=== PATIENT | female | born 1955 | race Caucasian/White ===

== ENCOUNTER → 2017-05-16 | Outpatient (CLI) | payer OTHER ==
[~2017-05-16] MED LIST: ALBU3IS INH; ALBU90OI61 INH; ALSUMA6 MG/0.5 M SC; BUPR150ER; Benadryl 50 mg50 MG PO; Budeprion Xl300 MG; CAMBIA50 MG PO; Diclofenac Pota50 MG PO; FLUSAL1005 INH; FLUT1DIS2 INH; FOLI1 PO; KETO60I; MAGNESIUM250 MG PO; ONDA4ODT MM; Pepcid20 MG PO; Prednisone20 MG PO; RALO60; SUMA6I; TOPI100; TOPI100 PO; TRAM50 PO; ZOLM5
[2017-05-16 14:07] LABS: BASOPHILS ABSOLUTE AUTO 0.07 K/mm3 (0.00-0.23); BASOPHILS PERCENT AUTO 1 % (0-2); EOSINOPHILS ABSOLUTE AUTO 0.15 K/mm3 (0.00-0.68); EOSINOPHILS PERCENT AUTO 2 % (0-6); Hematocrit 43.4 % (33.0-51.0); Hemoglobin 13.7 g/dL (11.5-16.0); IMMATURE GRAN ABSOLUTE AUTO 0.02 K/mm3 (0.00-0.10); IMMATURE GRAN PERCENT AUTO 0 % (0-1); LYMPHOCYTES ABSOLUTE AUTO 1.53 K/mm3 (0.84-5.20); LYMPHOCYTES PERCENT AUTO 24 % (21-46); MONOCYTES ABSOLUTE AUTO 0.43 K/mm3 (0.16-1.47); MONOCYTES PERCENT AUTO 7 % (4-13); Mean Corpuscular HGB 28.2 pg (26.0-34.0); Mean Corpuscular HGB Conc 31.6 g/dL (31.5-36.5); Mean Corpuscular Volume 89 fL (80-100); Mean Platelet Volume 9.1 fL (9.1-12.4); NEUTROPHILS ABSOLUTE AUTO 4.21 K/mm3 (1.96-9.15); NEUTROPHILS PERCENT AUTO 66 % (41-73); Platelet Count 383 K/mm3 (150-400); RDW Coefficient Variation 13.1 % (11.7-14.2); RDW Standard Deviation 43.1 fL (35.1-46.3); Red Blood Cell Count 4.86 M/mm3 (3.80-5.20); White Blood Cell Count 6.41 K/mm3 (4.00-11.30)
[2017-05-16 14:33] LABS: Albumin, Blood 3.8 g/dL (3.4-5.0); Albumin/Globulin Ratio 1.1 (0.8-1.8); Bilirubin, Total 0.3 mg/dL (0.1-1.0); Bun/Creatinine Ratio 14.7 (12.0-20.0); Calcium, Blood 8.5 mg/dL (8.5-10.1); Creatinine, Blood 1.02 mg/dL (0.40-1.00); Globulin, Blood 3.4 g/dL (2.2-4.0); Potassium, Blood 4.2 mmol/L (3.5-5.5); Total Protein, Blood 7.2 g/dL (6.4-8.2)
== END | disposition home or self-care (01) ==
LOC: LAB 13:54
PROVIDERS: Hospitalist
DX: I10 Essential (primary) hypertension (principal)
CPT/HCPCS: 80053; 85025

== ENCOUNTER → 2021-05-16 | Outpatient (CLI) | payer OTHER ==
[2021-05-16 19:24] LABS: BASOPHILS ABSOLUTE AUTO 0.07 K/mm3 (0.00-0.23); BASOPHILS PERCENT AUTO 1 % (0-2); EOSINOPHILS ABSOLUTE AUTO 0.11 K/mm3 (0.00-0.68); EOSINOPHILS PERCENT AUTO 1 % (0-6); Hematocrit 47.6 % (33.0-51.0); Hemoglobin 14.9 g/dL (11.5-16.0); IMMATURE GRAN ABSOLUTE AUTO 0.06 K/mm3 (0.00-0.10); IMMATURE GRAN PERCENT AUTO 1 % (0-1); LYMPHOCYTES ABSOLUTE AUTO 1.72 K/mm3 (0.84-5.20); LYMPHOCYTES PERCENT AUTO 15 % (21-46); MONOCYTES ABSOLUTE AUTO 0.56 K/mm3 (0.16-1.47); MONOCYTES PERCENT AUTO 5 % (4-13); Mean Corpuscular HGB 28.1 pg (26.0-34.0); Mean Corpuscular HGB Conc 31.3 g/dL (31.5-36.5); Mean Corpuscular Volume 90 fL (80-100); Mean Platelet Volume 8.8 fL (9.1-12.4); NEUTROPHILS ABSOLUTE AUTO 9.04 K/mm3 (1.96-9.15); NEUTROPHILS PERCENT AUTO 78 % (41-73); Platelet Count 430 K/mm3 (150-400); RDW Coefficient Variation 13.6 % (11.7-14.2); RDW Standard Deviation 44.5 fL (35.1-46.3); Red Blood Cell Count 5.31 M/mm3 (3.80-5.20); White Blood Cell Count 11.56 K/mm3 (4.00-11.30)
[2021-05-16 19:59] LABS: Albumin/Globulin Ratio 1.3 (0.8-1.8); Bilirubin, Total 0.4 mg/dL (0.1-1.0); Bun/Creatinine Ratio 20.4 (12.0-20.0); Calcium, Blood 8.9 mg/dL (8.5-10.1); Creatinine, Blood 0.98 mg/dL (0.40-1.00); Potassium, Blood 4.2 mmol/L (3.5-5.5); Thyroid Stimulating Hormone 1.99 uIU/mL (0.360-4.800)
== END ==
LOC: LAB SHORT 15:15
PROVIDERS: Hospitalist
DX: R53.83 Other fatigue (principal)
CPT/HCPCS: 80053; 84443; 85025

== ENCOUNTER 2021-10-03 16:31 | Emergency (ER) | payer OTHER ==
[~2021-10-03] VITALS: Ht 165.1 cm; Wt 82.5 kg
[2021-10-03 17:29] LABS: BASOPHILS ABSOLUTE AUTO 0.06 K/mm3 (0.00-0.23); BASOPHILS PERCENT AUTO 1 % (0-2); EOSINOPHILS ABSOLUTE AUTO 0.18 K/mm3 (0.00-0.68); EOSINOPHILS PERCENT AUTO 2 % (0-6); Hematocrit 48.4 % (33.0-51.0); Hemoglobin 15.7 g/dL (11.5-16.0); IMMATURE GRAN ABSOLUTE AUTO 0.02 K/mm3 (0.00-0.10); IMMATURE GRAN PERCENT AUTO 0 % (0-1); LYMPHOCYTES ABSOLUTE AUTO 1.66 K/mm3 (0.84-5.20); LYMPHOCYTES PERCENT AUTO 16 % (21-46); MONOCYTES ABSOLUTE AUTO 0.59 K/mm3 (0.16-1.47); MONOCYTES PERCENT AUTO 6 % (4-13); Mean Corpuscular HGB 29.7 pg (26.0-34.0); Mean Corpuscular HGB Conc 32.4 g/dL (31.5-36.5); Mean Corpuscular Volume 92 fL (80-100); Mean Platelet Volume 9.6 fL (9.1-12.4); NEUTROPHILS ABSOLUTE AUTO 7.64 K/mm3 (1.96-9.15); NEUTROPHILS PERCENT AUTO 75 % (41-73); Platelet Count 343 K/mm3 (150-400); RDW Coefficient Variation 13.4 % (11.7-14.2); RDW Standard Deviation 45.5 fL (35.1-46.3); Red Blood Cell Count 5.28 M/mm3 (3.80-5.20); White Blood Cell Count 10.15 K/mm3 (4.00-11.30)
[2021-10-03 17:51] LABS: Albumin, Blood 3.8 g/dL (3.4-5.0); Bilirubin, Total 0.5 mg/dL (0.1-1.0); Bun/Creatinine Ratio 20.3 (12.0-20.0); Calcium, Blood 9.5 mg/dL (8.5-10.1); Creatinine, Blood 0.84 mg/dL (0.40-1.00); Potassium, Blood 4.4 mmol/L (3.5-5.5); Total Protein, Blood 7.8 g/dL (6.4-8.2)
== END 2021-10-03 19:13 | disposition left against medical advice (07) ==
LOC: ER 16:31
PROVIDERS: Student in an Organized Health Care Education/Training Program
DX: K59.00 Constipation, unspecified (principal); Z79.899 Other long term (current) drug therapy; Z53.21 Procedure and treatment not carried out due to patient leaving prior to being seen by health care provider
CPT/HCPCS: 36415; 80053; 85025; 99283; J7030

== ENCOUNTER → 2022-03-27 | Outpatient (CLI) | payer OTHER | END | disposition home or self-care (01) | LOC: LAB SHORT 17:00 | DX: N30.00 Acute cystitis without hematuria (principal) | CPT/HCPCS: 87077; 87086; 87186 ==

== ENCOUNTER → 2022-05-10 | Outpatient (CLI) | payer OTHER | END | disposition home or self-care (01) | LOC: PLD 10:09 → LAB SHORT 10:09 | DX: L92.8 Other granulomatous disorders of the skin and subcutaneous tissue (principal) | CPT/HCPCS: 88305; 88313 ==

== ENCOUNTER → 2022-05-20 | Outpatient (CLI) | payer OTHER | LOC: LAB 11:10 → LAB SHORT 11:10 | DX: R30.0 Dysuria (principal) | CPT/HCPCS: 87086 ==

== ENCOUNTER 2022-07-06 10:50 | Observation (INO) | payer OTHER ==
[~2022-07-06] VITALS: Ht 165.1 cm; Wt 167.3 kg
[~2022-07-06 10:50] MED LIST changes: -ZOLM5; +ZOLM5 PO
[2022-07-06] MEDS ORDERED: Percocet 5-3251 EACH PO (14:30)
[2022-07-06] MEDS ORDERED: Bupropion HCl75 MG PO (20:30)
[2022-07-06] MEDS ORDERED: FLUTICASONE PRO16 GM (20:31)
[2022-07-06] MEDS ORDERED: NURTEC ODT75 MG PO (20:35)
--- NOTE | 2022-07-07 04:33 | NUR ---
SHIFT SUMMARY 67 YR F ADMITTED ON 07/06/22 FOR RIGHT HUMURUS FX. FULL CODE. PT C/O RIGHT ARM PAIN RATED AT 6-8 THROUGHOUT THIS SHIFT. PAIN MEDS PER EMAR HAVE BEEN ALTERNATED AND PT STATES SOME RELIEF BUT NOT FULL RELIEF. SHE WAS GIVEN AN ICE PACK PER HER REQUEST AND SHE STATED THAT IT DID HELP SOME WITH THE PAIN. UPON ARRIVAL FROM THE ED SHE HAD A PUREWICK BUT SHE WAS NOT COMFORTABLE WITH IT SO IT WAS REMOVED. SHE AMBULATES TO THE BATHROOM WITH ASSISTANCE.
[2022-07-07 04:54] LABS: Hematocrit 40.2 % (33.0-51.0); Hemoglobin 13.3 g/dL (11.5-16.0); Mean Corpuscular HGB 29.6 pg (26.0-34.0); Mean Corpuscular HGB Conc 33.1 g/dL (31.5-36.5); Mean Corpuscular Volume 90 fL (80-100); Mean Platelet Volume 9.2 fL (9.1-12.4); Platelet Count 288 K/mm3 (150-400); RDW Coefficient Variation 12.2 % (11.7-14.2); RDW Standard Deviation 39.8 fL (35.1-46.3); Red Blood Cell Count 4.49 M/mm3 (3.80-5.20); White Blood Cell Count 9.66 K/mm3 (4.00-11.30)
[2022-07-07 05:09] LABS: Bun/Creatinine Ratio 19.7 (12.0-20.0); Calcium, Blood 8.8 mg/dL (8.5-10.1); Creatinine, Blood 0.96 mg/dL (0.40-1.00); Potassium, Blood 4.1 mmol/L (3.5-5.5)
--- NOTE | 2022-07-07 18:07 | NUR ---
SHIFT SUMMARY: NO ACUTE EVENTS. PAIN BETTER CONTROLLED WITH THE ADDITIONAL OF FLEXERIL, BUT STILL NOT AT PT'S ACCEPTABLE LEVEL. PAIN HAS BEEN 5-8/10, WORSE WITH MOVEMENT, IS USING ICE PACKS PRN. APPETITE OK. EDEMA AND BRUISING NOTED ON R SHOULDER/UPPER ARM, R RADIAL PULSE STRONG, SENSATION INTACT. HAD A SHOWER TODAY BUT REQUIRED ASSISTANCE WITH DRESSING, BATHING, AND DRYING. PT STATED DR. DOMINGUEZ SAW HER TODAY AND REITERATED THAT HE WILL SEE HER OUTPATIENT. LIVES WITH HER BROTHER, WHO SHE STATES HAS HIS OWN HEALTH ISSUES AND DOES NOT OR CANNOT PROVIDE HER WITH ASSISTANCE.
--- NOTE | 2022-07-08 04:12 | NUR ---
SUMMARY: MEDICATED FOR PAIN PER EMAR. PATIENT AMBULATED TO RESTROOM INDEPENDENTLY BUT WITH SUPERVISION. ICE PACKS APPLIED TO R SHOULDER SWELLING THROUGHOUT NIGHT. PATIENT WAS ABLE TO GET SOME REST IN THE LATE HOURS OF THE NIGHT. CALL LIGHT IN REACH.
--- NOTE | 2022-07-08 10:42 | NUR ---
HOME HEALTH AGENCY CHOICE PATIENT ASKED FOR HOME [facility] AGENCY PREFERENCE. PATIENT STATES NO PREFERENCE. REFERRAL CALLED TO [facility] WEEKEND ANSWERING SERVICE.
[2022-07-08] MEDS ORDERED: Colace100 MG PO (13:42)
[2022-07-08] MEDS ORDERED: MIRALAX17 GM PO (13:45)
[2022-07-08] MEDS ORDERED: SENN187 PO (13:47)
[2022-07-08] MEDS ORDERED: Cyclobenzaprine5 MG PO (13:50)
[2022-07-08] MEDS ORDERED: OXYCODONE HCL PO (13:54)
[2022-07-08] MEDS ORDERED: Percocet 7.5-31 EACH PO (14:11)
--- NOTE | 2022-07-08 16:29 | NUR ---
PT DISCHARGED HOME WITH HH. DISCHARGE INSTRUCTIONS AND EDUCATION MATERIAL EXPLAINED TO PT. NO NEW QUESTIOINS OR CONCERNS. MEDICATION PERSCRIPTION SLIPS GIVEN TO PT. NO NEW QUESTIONS OR CONCERNS. IV DC'D. SHOULDER IMMOBILIZER PLACED ON PT AND INSTRUCTIONS FOR USE GIVEN. PT HELPED TO DRESS. ALL BELONGINGS SENT HOME WITH PT. PT TAKEN BY WHEELCHAIR TO WAITING VEHICLE.
== END 2022-07-08 16:05 | disposition home health service (06) ==
LOC: ER 10:50 → MEDS 10:51
PROVIDERS: Nurse Practitioner Acute Care; ADMIT Internal Medicine
DX: S42.211A Unspecified displaced fracture of surgical neck of right humerus, initial encounter for closed fracture (principal); J45.20 Mild intermittent asthma, uncomplicated; G43.909 Migraine, unspecified, not intractable, without status migrainosus; E66.01 Morbid (severe) obesity due to excess calories; Z98.84 Bariatric surgery status; Z88.1 Allergy status to other antibiotic agents; Z88.5 Allergy status to narcotic agent; W01.0XXA Fall on same level from slipping, tripping and stumbling without subsequent striking against object, initial encounter
CPT/HCPCS: 36415; 73030; 73070; 73110; 73200; 73206; 80048; 85027; 94760; 96374-59; 96375-59; 96376-59; 97161; 99285-25; A9270; J1170; J1650; J1885; J2405; J3010; Q9967

== ENCOUNTER 2023-10-26 15:31 | Emergency (ER) | payer OTHER ==
[~2023-10-26] VITALS: Ht 165.1 cm; Wt 74.8 kg
[~2023-10-26 15:31] MED LIST changes: +Bupropion HCl75 MG PO; +Colace100 MG PO; +Cyclobenzaprine5 MG PO; +FLUTICASONE PRO16 GM; +MIRALAX17 GM PO; +NURTEC ODT75 MG PO; +OXYCODONE HCL PO; +Percocet 5-3251 EACH PO; +Percocet 7.5-31 EACH PO; +SENN187 PO
[2023-10-26] MEDS ORDERED: Droperidol 5 mg/2 ml Vial IV ONE (15:45)
[2023-10-26 15:51] LABS: BASOPHILS ABSOLUTE AUTO 0.04 K/mm3 (0.00-0.23); BASOPHILS PERCENT AUTO 1 % (0-2); EOSINOPHILS ABSOLUTE AUTO 0.07 K/mm3 (0.00-0.68); EOSINOPHILS PERCENT AUTO 1 % (0-6); Hematocrit 40.7 % (33.0-51.0); Hemoglobin 13.5 g/dL (11.5-16.0); IMMATURE GRAN ABSOLUTE AUTO 0.02 K/mm3 (0.00-0.10); IMMATURE GRAN PERCENT AUTO 0 % (0-1); LYMPHOCYTES ABSOLUTE AUTO 1.13 K/mm3 (0.84-5.20); LYMPHOCYTES PERCENT AUTO 14 % (21-46); MONOCYTES ABSOLUTE AUTO 0.41 K/mm3 (0.16-1.47); MONOCYTES PERCENT AUTO 5 % (4-13); Mean Corpuscular HGB 29.2 pg (26.0-34.0); Mean Corpuscular HGB Conc 33.2 g/dL (31.5-36.5); Mean Corpuscular Volume 88 fL (80-100); Mean Platelet Volume 9.5 fL (9.1-12.4); NEUTROPHILS ABSOLUTE AUTO 6.32 K/mm3 (1.96-9.15); NEUTROPHILS PERCENT AUTO 79 % (41-73); Platelet Count 320 K/mm3 (150-400); RDW Coefficient Variation 13.3 % (11.7-14.2); RDW Standard Deviation 42.9 fL (35.1-46.3); Red Blood Cell Count 4.63 M/mm3 (3.80-5.20); White Blood Cell Count 7.99 K/mm3 (4.00-11.30)
[2023-10-26 16:23] LABS: Albumin, Blood 3.9 g/dL (3.4-5.0); Albumin/Globulin Ratio 1.4 (0.8-1.8); Bilirubin, Total 0.4 mg/dL (0.1-1.0); Bun/Creatinine Ratio 12.6 (12.0-20.0); Calcium, Blood 8.3 mg/dL (8.5-10.1); Creatinine, Blood 1.11 mg/dL (0.40-1.00); Globulin, Blood 2.8 g/dL (2.2-4.0); Potassium, Blood 3.6 mmol/L (3.5-5.5); Total Protein, Blood 6.7 g/dL (6.4-8.2)
[2023-10-26 18:30] VITALS: BP 128/81
[2023-10-26] MEDS ORDERED: Ketorolac Tromethamine 30mg Vial IV ONE (18:35)
== END 2023-10-26 18:48 | disposition home or self-care (01) ==
LOC: ER 15:31
PROVIDERS: Student in an Organized Health Care Education/Training Program
DX: S06.9X1A Unspecified intracranial injury with loss of consciousness of 30 minutes or less, initial encounter (principal); S00.83XA Contusion of other part of head, initial encounter; S29.9XXA Unspecified injury of thorax, initial encounter; M25.512 Pain in left shoulder; G43.909 Migraine, unspecified, not intractable, without status migrainosus; J45.909 Unspecified asthma, uncomplicated; Y04.8XXA Assault by other bodily force, initial encounter; Z79.52 Long term (current) use of systemic steroids; Z79.899 Other long term (current) drug therapy; Z88.1 Allergy status to other antibiotic agents; Z88.5 Allergy status to narcotic agent
CPT/HCPCS: 70450; 70486; 71260; 72125; 73030; 74177; 80053; 85025; 93005; 93010; 96374-59; 99285-25; J1790; J1885; Q9967